=== PATIENT | female | born 1975 | race Caucasian/White ===

== ENCOUNTER 2021-11-24 13:23 | Emergency (ER) | payer OTHER, SELFPAY ==
--- NOTE | ~2021-11-24 | CT_ITS ---
EXAMINATION: CT abdomen pelvis w con DATE: 11/24/2021 16:05 INDICATION: Abdominal pain, nausea and vomiting. Constipation. TECHNIQUE: Computed tomography (CT) of the abdomen and pelvis was performed with 100 CC Omnipaque 300 intravenous contrast. Automated exposure control and iterative reconstruction technique were employe d. Exam dose: 203.50 mGy-cm total exam DLP. COMPARISON: None. FINDINGS: The lung bases are clear. Normal heart size. No pericardial or pleural effusion. The liver, gallbladder, bile ducts, spleen, pancreas and pancreatic duct appear normal. Normal morphology of the adrenal glands. No renal mass lesion or urinary tract calculus or hydroureteronephrosis. The urinary bladder is unrem arkable. The uterus and adnexal areas are unremarkable. Normal caliber of the abdominal aorta. No intraperitoneal or retroperitoneal or pelvic mass lesion or adenopathy or ascites. Normal appendix. There is prominent fecal material within the colon but no bowel obstruction is detec triston. No intraperitoneal free air. Mild fat-containing umbilical hernia. No suspicious osteolytic or osteosclerotic lesions. IMPRESSION: Normal appendix. No bowel obstruction or Reviewed, dictated and finalized at [facility]. Reviewed, dictated and finalized at [facility].
[2021-11-24 13:30] VITALS: BP 125/94; PULSE 91; RESP 16; TEMP 36.3; O2SAT 100
[2021-11-24 13:39] VITALS: BP 126/69; PULSE 66; TEMP 36.8; O2SAT 100
--- NOTE | 2021-11-24 13:56 | ED.GENADULT ---
HPI - General Adult General Chief complaint: Nausea/Vomiting/Diarrhea Stated complaint: vomiting Time Seen by Provider: 11/24/21 13:42 History of Present Illness HPI narrative: 45-year-old female with history of subsequent vomiting presented to the emergency department for evaluation of nausea vomiting for the past 3 days with associated constipation. Patient states she does take Reglan, MiraLAX and Protonix. Patient states that approximately every 3 months that she does have symptoms similar to this. Patient does follow-up with GI at [place]. Patient reports that she did have a colonoscopy approximately 1 month ago that was inconclusive because she was told she needed to be cleaned out. Patient does report intermittent issues with constipation. Related Data Allergies Allergy/AdvReac Type Severity Reaction Status Date / Time Penicillins Allergy Severe ANAPHYLAXIS Verified 11/24/21 14:23 Review of Systems Review of Systems: CONSTITUTIONAL: Denies fever, chills, or sweats. EYES: Denies visual changes, redness, or discharge. ENT: Denies rhinorrhea, congestion, sore throat, or otalgia. CARDIOVASCULAR: Denies chest pain, palpitations, or edema. RESPIRATORY: Denies cough or dyspnea. GASTROINTESTINAL: See HPI GENITOURINARY: Denies dysuria or hematuria. SKIN: Denies rash or itching. MUSCULOSKELETAL: Denies back pain, joint pain, or myalgia. NEUROLOGIC: Denies headache, numbness, or weakness. Exam Narrative: APPEARANCE: Well appearing, no pain, no distress, well-nourished. HEAD: normocephalic, atraumatic. EYES: PERRLA/EOMI, conjunctivae clear. NOSE: Normal no drainage EARS:TMS clear with good light reflex. THROAT: Pharynx clear, no exudate. NECK: Supple. No adenopathy, no masses. RESPIRATORY: Airway patent, respirations nonlabored. Clear to auscultation bilaterally, no rales, rhonchi, wheezing. CARDIOVASCULAR: Regular rate and rhythm without murmurs rubs or gallops. ABDOMINAL: Soft, nontender, nondistended, normal bowel sounds MUSCULOSKELETAL: Moves all extremities. Strength/ROM intact, No edema, No calf tenderness. NEURO: Alert. Cranial nerves II through XII intact. Grossly intact SKIN: Warm, dry. Normal Color Course Course Emergency Course: Patient did feel improved with treatment. Patient was tolerating p.o. Patient was encouraged to have close follow-up with her physicians as scheduled. Patient was provided outpatient prescription for her Reglan and Zofran. Vital Signs Vital signs: Vital Signs Temperature 97.3 F L 11/24/21 13:30 Pulse Rate 91 11/24/21 13:30 Respiratory Rate 16 11/24/21 13:30 Blood Pressure 125/94 H 11/24/21 13:30 Pulse Oximetry 100 11/24/21 13:30 Oxygen Delivery Room Air 11/24/21 13:30 Temperature 98.6 F 11/24/21 17:10 Pulse Rate 81 11/24/21 17:10 Respiratory Rate 16 11/24/21 17:10 Blood Pressure 118/70 11/24/21 17:10 Pulse Oximetry 100 11/24/21 17:10 Oxygen Delivery Room Air 11/24/21 14:19 Medical Decision Making Vital Signs Vital Signs: Vital Signs Temperature 97.3 F L 11/24/21 13:30 Pulse Rate 91 11/24/21 13:30 Respiratory Rate 16 11/24/21 13:30 Blood Pressure 125/94 H 11/24/21 13:30 Pulse Oximetry 100 11/24/21 13:30 Oxygen Delivery Room Air 11/24/21 13:30 Temperature 98.6 F 11/24/21 17:10 Pulse Rate 81 11/24/21 17:10 Respiratory Rate 16 11/24/21 17:10 Blood Pressure 118/70 11/24/21 17:10 Pulse Oximetry 100 11/24/21 17:10 Oxygen Delivery Room Air 11/24/21 14:19 Lab Data Lab results reviewed: Yes I reviewed the patient's lab results. Result diagrams: 11/24/21 14:02 11/24/21 14:02 Labs: Lab Results 11/24/21 11/24/21 11/24/21 Range/Units 14:02 14:02 14:02 WBC 12.9 H (4.5-10.0) K/mm3 RBC 4.86 (4.2-5.4) M/mm3 Hgb 14.5 (12.0-15.0) g/dL Hct 43.2 (37.0-47.0) % MCV 88.9 (80-100) fl MCH 29.8 (26-34) pg MCHC 33.6 (32-36) g/dl RDW 14.
[2021-11-24 14:09] LABS: Appearance Urine Slightly Cloudy (Clear); Basophils Percent Auto 0.2 % (0.2-1.2); Bilirubin Urine Negative (Negative); Blood Urine Negative (Negative); Color Urine Yellow (Yellow); Glucose Urine UA Negative (Negative); Hematocrit 43.2 % (37.0-47.0); Hemoglobin 14.5 g/dL (12.0-15.0); Immature Granulocyte Absolute 0.04 K/mm3 (0.00-0.031); Immature Granulocyte Percent A 0.3 % (0-0.5); Ketones Urine 2+ mg/dL (Negative); Leukocyte Esterase Ur Trace LEU/UL (Negative); Lymphocytes Absolute Auto 0.93 K/mm3 (0.9-3.2); Lymphocytes Percent Auto 7.2 % (18.3-44.2); Mean Corpuscular HGB Conc 33.6 g/dl (32-36); Mean Corpuscular Hemoglobin 29.8 pg (26-34); Mean Corpuscular Volume 88.9 fl (80-100); Mean Platelet Volume 11.1 fl (7.4-10.4); Monocytes Absolute Auto 0.2 K/mm3 (0.1-0.6); Monocytes Percent Auto 1.7 % (2.6-8.5); Neutrophils Absolute Auto 11.7 K/mm3 (1.3-6.7); Neutrophils Percent Auto 90.6 % (45.5-73.1); Nitrate Urine Negative (Negative); Platelet Count Result 242 k/mm3 (150-375); Protein Urine 1+ mg/dL (Negative); Red Blood Count 4.86 M/mm3 (4.2-5.4); Red Cell Distribution Width 14.1 % (11.5-14.5); Specific Grav Ur 1.015 (1.001-1.035); Urobilinogen Urine 0.2 mg/dL (<2.0); White Blood Count 12.9 K/mm3 (4.5-10.0); pH Urine >=9.0 (5.0-9.0)
[2021-11-24 14:14] LABS: Bacteria Urine Trace /hpf; Mucus Urine Rare /lpf; Squamous Epithelial Cell Urine Many /hpf (Few)
[2021-11-24 14:15] LABS: Add Urine Microscopic? YES
[2021-11-24 14:19] VITALS: BP 118/71; PULSE 79; RESP 19; O2SAT 96
[2021-11-24 14:20] LABS: Alanine Aminotransferase 16 U/L (6-35); Albumin Level 4.7 g/dL (3.5-5.1); Alkaline Phosphatase 90 U/L (38-126); Anion Gap 9 mmol/L (8-16); Aspartate Amino Transferase 26 U/L (14-36); Bilirubin,Total 0.7 mg/dL (0.2-1.3); Blood Urea Nitrogen 14 mg/dL (7-17); Calcium 9.5 mg/dL (8.4-10.2); Carbon Dioxide 27 mmol/L (22-30); Chloride 100 mmol/L (98-107); Estimated CRCL calculation 56 ml/min; Estimated Glomerular Filt Rate > 60; Glucose 154 mg/dL (65-110); Lipase 190 U/L (23-300); Potassium 3.9 mmol/L (3.4-5.0); Sodium 136 mmol/L (137-145)
[2021-11-24] MEDS: SODIUM CHLORIDE 0.9% IV 1,000 ML 999 ML IV CONT (15:22)
[2021-11-24] MEDS: METOCLOPRAMIDE HCL INJ 10 MG/2 ML VIAL IV PUSH (15:22)
[2021-11-24] MEDS: ONDANSETRON INJ 4 MG/2 ML VIAL IV PUSH (15:23)
--- NOTE | 2021-11-24 15:40 | PC.NURSE ---
Pt informed nurse she takes methadone daily, missed her dose today at 1330. Pt requesting pain medication and protonix aware, will place orders.
--- NOTE | 2021-11-24 16:00 | PC.NURSE ---
off floor to CT scan
[2021-11-24] MEDS: KETOROLAC 15 MG/ML VIAL (*BKC) IV PUSH (16:29)
[2021-11-24] MEDS: PANTOPRAZOLE SODIUM IV 40 MG VIAL IV PUSH (16:30)
--- NOTE | 2021-11-24 16:37 | PC.NURSE ---
Pt ordered 50 mcg of fentanyl. BP 90/54, patient snoring, intermittently sleeping while RN administering toradol and protonix. MD at bedside, discussed and ordered to not give Fentanyl at this time. Wasted with marlen Pearce RN.
[2021-11-24] MEDS: BELLADONNA ALK/PHENOB ELIX 10 ML, MAG HYDROX/ALUMINUM HYD/SIMETH 30 ML, LIDOCAINE HCL 2... PO (16:43)
[2021-11-24 17:10] VITALS: BP 118/70; PULSE 81; RESP 16; TEMP 37; O2SAT 100
== END 2021-11-24 17:10 | disposition home or self-care (01) ==
PROVIDERS: Emergency Provider Emergency Medicine
DX: R11.2 Nausea with vomiting, unspecified (principal)
CPT/HCPCS: 36415; 74177; 80053; 81001; 81025; 83605; 83690; 85025; 87086; 96361; 96374; 96375; 99284; A9270; C9113; J1885; J2405; J2765; J3010; J7030; Q9967

== ENCOUNTER 2022-05-02 11:09 | Emergency (ER) | payer OTHER, SELFPAY ==
--- NOTE | ~2022-05-02 | CT_ITS ---
EXAMINATION: CT abdomen pelvis w con INDICATION: Abdominal pain TECHNIQUE: Computed tomographic images of the abdomen and pelvis were obtained after the administrati on of 100 cc of Omnipaque 350 intravenous contrast. The dose-length product (DLP) was 206.66 mGy-cm. Automated exposure control and iterative reconstruction technique were employed. COMPARISON: 11/24/2021 FINDINGS: The lung bases are clear. The heart size is normal. The liver, spleen, pancreas, gallbladde r, and adrenal glands are normal. The kidneys are unremarkable. No pathologically enlarged abdominal or pelvic lymph nodes are identified. There is an umbilical hernia containing fat. There is no free i ntraperitoneal gas or evidence of bowel obstruction. IMPRESSION: 1. No CT correlate for the patient's symptoms. Reviewed, dictated and finalized at location [facility]. TICING DERMATOLOGIST
[2022-05-02 11:38] VITALS: BP 124/62; RESP 22; TEMP 36.5; O2SAT 96
--- NOTE | 2022-05-02 12:19 | ED.GENADULT ---
HPI - General Adult General Chief complaint: Nausea/Vomiting/Diarrhea Stated complaint: N/V/D Time Seen by Provider: 05/02/22 12:01 Source: RN notes reviewed History of Present Illness HPI narrative: Patient presents emergency department from home for abdominal pain. Patient states symptoms began yesterday. Abdominal pain is described as sharp and stabbing in nature and is diffuse throughout the abdomen. Has been associate with nausea vomiting and diarrhea. Patient states that she has been unable to keep anything down. States the pain does not radiate. She denies any fevers or chills chest pain or shortness of breath. States she has not take anything for the symptoms. Patient states that several people at home have had similar GI symptoms Related Data Allergies Allergy/AdvReac Type Severity Reaction Status Date / Time Penicillins Allergy Severe ANAPHYLAXIS Verified 11/24/21 14:23 Review of Systems Review of Systems: Gen.: Denies fevers or chills ENT: Denies congestion Respiratory: Denies shortness of breath or cough CV: Denies chest pain or palpitations GI: See HPI denies burning, urgency, frequency or hematuria Musculoskeletal: Denies back pain or muscle pain Neuro: Denies numbness, tingling, weakness or focal weakness Skin: Denies rash Except as documented, all other systems reviewed and negative [facility] Past Medical History Medical History (Updated 05/02/22 @ 18:36 by Danilo Bethea DO) Patient denies significant medical history Social History Social History (Updated 05/02/22 @ 12:20 by Danilo Bethea DO) Smoking status: Current every day smoker Exam Narrative: APPEARANCE: No acute distress, nontoxic, resting in bed HEENT: Normocephalic, atraumatic, OMM RESPIRATORY: No respiratory distress, clear to auscultation bilaterally with no rhonchi wheezing or rales CARDIOVASCULAR: RRR s murmur ABDOMINAL: Soft nondistended diffusely tender to palpation no rebound or guarding MUSCULOSKELETAl: Moves all extremities. No clubbing, cyanosis or edema. NEURO: Awake and alert. Following commands, speech normal, no focal deficits SKIN:: Warm, dry. Normal Color PSYCHIATRIC: Normal affect/mood Course Course Emergency Course: Patient able to eat and drink in ED with no emesis Reviewed old records the patient does have a history of recurrent GI issues per last note Patient states that they are feeling much better at this time. States abdominal pain has improved. Repeat abdominal exam shows the patient's abdomen to be soft with no surgical abdomen present. Discussed with patient results of workup and diagnosis. Discussed need for follow-up with primary care physician, reasons to return to the emergency department in proper use of medication. Patient understands and agrees to current treatment plan Vital Signs Vital signs: Vital Signs Temperature 97.7 F 05/02/22 11:38 Respiratory Rate 22 H 05/02/22 11:38 Blood Pressure 124/62 05/02/22 11:38 Pulse Oximetry 96 05/02/22 11:38 Oxygen Delivery Room Air 05/02/22 11:38 Temperature 97.7 F 05/02/22 11:38 Pulse Rate 90 05/02/22 16:08 Respiratory Rate 16 05/02/22 16:08 Blood Pressure 109/59 L 05/02/22 16:08 Pulse Oximetry 100 05/02/22 16:08 Oxygen Delivery Room Air 05/02/22 11:38 Medical Decision Making MDM Narrative Medical decision making narrative: Patient states that they are feeling much better at this time. States abdominal pain has resolved. Repeat abdominal exam shows the patient's abdomen to be soft and nontender. Discussed with patient results of workup and diagnosis. Discussed need for follow-up with primary care physician, reasons to return to the emergency department in proper use of medication. Patient understands and agrees to current treatment plan Vital Signs Vital Signs: Vital Signs Temperature 97.7 F 05/02/22 11:38 Respiratory Rate 22 H 05/02/22 11:38 Blood Pressure 124/62 05/02/22 11:38 Pulse O
[2022-05-02] MEDS: SODIUM CHLORIDE 0.9% IV 1,000 ML 999 ML IV CONT ×2 (12:24→16:29)
[2022-05-02] MEDS: FAMOTIDINE 20 MG/2 ML VIAL IV PUSH (12:25)
[2022-05-02] MEDS: ONDANSETRON INJ 4 MG/2 ML VIAL IV PUSH (12:25)
[2022-05-02 12:45] LABS: Basophils Percent Auto 0.2 % (0.2-1.2); Hematocrit 43.8 % (37.0-47.0); Hemoglobin 15.5 g/dL (12.0-15.0); Immature Granulocyte Absolute 0.07 K/mm3 (0.00-0.031); Immature Granulocyte Percent A 0.4 % (0-0.5); Lymphocytes Absolute Auto 0.49 K/mm3 (0.9-3.2); Mean Corpuscular HGB Conc 35.4 g/dl (32-36); Mean Corpuscular Hemoglobin 31.5 pg (26-34); Mean Platelet Volume 11.5 fl (7.4-10.4); Monocytes Absolute Auto 0.3 K/mm3 (0.1-0.6); Monocytes Percent Auto 1.7 % (2.6-8.5); Neutrophils Absolute Auto 15.4 K/mm3 (1.3-6.7); Neutrophils Percent Auto 94.7 % (45.5-73.1); Platelet Count Result 250 k/mm3 (150-375); Red Blood Count 4.92 M/mm3 (4.2-5.4); Red Cell Distribution Width 13.6 % (11.5-14.5); White Blood Count 16.2 K/mm3 (4.5-10.0)
[2022-05-02 12:49] LABS: Alanine Aminotransferase 17 U/L (6-35); Albumin Level 4.7 g/dL (3.5-5.1); Alkaline Phosphatase 79 U/L (38-126); Anion Gap 5 mmol/L (8-16); Aspartate Amino Transferase 28 U/L (14-36); Bilirubin,Total 0.9 mg/dL (0.2-1.3); Blood Urea Nitrogen 16 mg/dL (7-17); Calcium 9.2 mg/dL (8.4-10.2); Carbon Dioxide 30 mmol/L (22-30); Chloride 98 mmol/L (98-107); Estimated CRCL calculation 62 ml/min; Estimated Glomerular Filt Rate > 60; Glucose 142 mg/dL (65-110); Lipase 141 U/L (23-300); Potassium 3.8 mmol/L (3.4-5.0); Sodium 133 mmol/L (137-145)
[2022-05-02 13:15] LABS: Influenza A QL RT-PCR Negative (Negative); Influenza B QL RT-PCR Negative (Negative); SARS-CoV-2 RNA PCR Negative
[2022-05-02 13:57] VITALS: BP 99/68; PULSE 77; RESP 16; O2SAT 98
[2022-05-02 14:12] LABS: Add Urine Microscopic? YES; Appearance Urine Clear (Clear); Bilirubin Urine Negative (Negative); Blood Urine Negative (Negative); Color Urine Light Yellow (Yellow); Glucose Urine UA Negative (Negative); Ketones Urine Trace mg/dL (Negative); Leukocyte Esterase Ur Negative LEU/UL (Negative); Nitrate Urine Negative (Negative); Protein Urine Negative (Negative); Specific Grav Ur 1.015 (1.001-1.035); Urobilinogen Urine 0.2 mg/dL (<2.0); pH Urine 8.5 (5.0-9.0)
[2022-05-02 14:28] LABS: Bacteria Urine Trace /hpf; Mucus Urine Rare /lpf; RBC Urine 0-2 /hpf (0-2); Squamous Epithelial Cell Urine Moderate /hpf (Few); WBC Urine 0-3 /hpf
[2022-05-02 16:08] VITALS: BP 109/59; PULSE 90; RESP 16; O2SAT 100
[2022-05-02] MEDS: PROMETHAZINE HCL 25 MG/ML AMPUL 12.5 MG IV PUSH (16:29)
== END 2022-05-02 19:11 | disposition home or self-care (01) ==
PROVIDERS: Emergency Provider Emergency Medicine
DX: R10.9 Unspecified abdominal pain (principal); R11.2 Nausea with vomiting, unspecified; R19.7 Diarrhea, unspecified; Z20.822 Contact with and (suspected) exposure to COVID-19; F17.200 Nicotine dependence, unspecified, uncomplicated
CPT/HCPCS: 36415; 74177; 80053; 81001; 81025; 83690; 85025; 87636; 96361; 96365; 96366; 96375; 99284; J0131; J2405; J2550; J7030; Q9967

== ENCOUNTER 2022-06-11 18:19 | Emergency (ER) | payer OTHER, SELFPAY ==
--- NOTE | ~2022-06-11 | CT_ITS ---
EXAMINATION: CT abdomen pelvis w con DATE: 06/11/2022 20:07 INDICATION: lower abd pain, leukocytosis TECHNIQUE: Computed tomography (CT) of the abdomen and pelvis was performed with 100 mL Omnipaque-350 intravenous contrast. Automated exposure control and iterative reconstruction technique were employe d. The dose-length product was 202.76 mGy-cm. COMPARISON: 05/02/2022, 11/24/2021. FINDINGS: Lower thorax: Unremarkable Liver: Normal. Biliary/Gallbladder: Gallbladder is normal. Mild extrahepatic and proximal pancreatic duct dilation, stable in the prior studies. Pancreas: No mass or duct dilation. Spleen: Normal. Adrenals:No mass. Kidneys: No mass, stone, or hydronephrosis. GI tract: No small or large bowel dilation. Normal appendix. Mesentery/Peritoneum: No ascites, mass, or free air. Retroperitoneum: No mass. Pelvis: Pelvic organs are within normal limits. Soft Tissues: Soft tissues and body wall unremarkable. Small uncomplicated fat-containing umbilical a nd bilateral inguinal hernias. Bones: No acute osseous finding. IMPRESSION: No acute abdominopelvic process detected. Reviewed, dictated and finalized at [facility]. CIPLE SOFTWARE ENGINEER
--- NOTE | ~2022-06-11 | XR_ITS ---
EXAM: XR abdomen/kub 1V DATE: 06/11/2022 18:46 HISTORY: abd pain . COMPARISON: 05/02/2022 CT abdomen and pelvis. FINDINGS: Clear lung bases. Normal bowel gas pattern. No organomegaly. No abnormal abdominal calcifi cation. Regional bones and soft tissues normal for age. IMPRESSION: No radiographic evidence of obstruction or ileus. Reviewed, dictated and finalized at [facility]. CAL OFFICE SPECIALIST
[2022-06-11 18:22] VITALS: BP 106/56; PULSE 87; RESP 14; TEMP 36.8; O2SAT 98
--- NOTE | 2022-06-11 18:26 | ED.ABDPAIN ---
HPI - Abdominal Pain General Chief Complaint: Abdominal Pain Stated Complaint: Abd Pain, N/V Time Seen by Provider: 06/11/22 18:21 History of Present Illness HPI narrative: 46-year-old female presents to the emergency room via EMS for evaluation of lower abdominal pain. Patient states the pain has been present since 8:00 this morning was associated with bilious vomiting. Patient also admits to significant history of constipation. States that she regularly takes spoonful of MiraLAX, but she has not been taking it recently. Denies any abdominal surgeries. Denies fever. Reports frequent urination without dysuria. Related Data Allergies Allergy/AdvReac Type Severity Reaction Status Date / Time Penicillins Allergy Severe ANAPHYLAXIS Verified 06/11/22 18:21 Review of Systems Review of Systems: CONSTITUTIONAL: Denies fever, chills, or sweats. EYES: Denies visual changes, redness, or discharge. ENT: Denies rhinorrhea, congestion, sore throat, or otalgia. CARDIOVASCULAR: Denies chest pain, palpitations, or edema. RESPIRATORY: Denies cough or dyspnea. GASTROINTESTINAL: Reports abdominal pain, nausea, vomiting GENITOURINARY: Denies dysuria or hematuria. SKIN: Denies rash or itching. MUSCULOSKELETAL: Denies back pain, joint pain, or myalgia. NEUROLOGIC: Denies headache, numbness, dizziness, or weakness. PSYCHIATRIC: Denies anxiety or depression. PMFSH Past Medical History Medical History Patient denies significant medical history Social History Social History Smoking status: Current every day smoker Exam Narrative: GENERAL: Well-appearing, well-nourished, no physical limitations, and in no acute distress. HEAD: Normocephalic, atraumatic. EYES: Conjunctivae normal, PERRLA and EOMI. CHEST: Clear to auscultation. No respiratory distress. No wheezes rales or rhonchi. No tenderness. HEART: Regular rate and rhythm. No murmur heard. Normal peripheral pulses. ABDOMEN: Soft, lower abdominal tenderness, nondistended, normal active bowel sounds. BACK: No CVA tenderness EXTREMITIES: Normal range of motion. No edema. No clubbing or cyanosis SKIN: Warm, dry, no rash. No noted wounds NEURO: No focal deficits. Alert and oriented x3. MAEW. CN's II-XI intact bilaterally, normal gait PSYCH: Cooperative. Normal mood and affect. Course Vital Signs Vital signs: Vital Signs Temperature 36.8 C 06/11/22 18:22 Pulse Rate 87 06/11/22 18:22 Respiratory Rate 14 06/11/22 18:22 Blood Pressure 106/56 L 06/11/22 18:22 Pulse Oximetry 98 06/11/22 18:22 Temperature 36.8 C 06/11/22 18:22 Pulse Rate 87 06/11/22 18:22 Respiratory Rate 14 06/11/22 18:22 Blood Pressure 106/56 L 06/11/22 18:22 Pulse Oximetry 98 06/11/22 18:22 MDM - Abdominal Pain MDM Narrative Medical decision making narrative: At 46-year-old female presented with lower abdominal pain sudden onset this morning. Exam is without any peritoneal signs. No evidence of acute abdomen at this time. CT abdomen showed no evidence of hepatobiliary disease, gastric perforation or any other acute infectious process. Presentation is not consistent with any acute emergent cause. Patient did have a leukocytosis, likely due to the nausea and vomiting. Serial abdominal exams were normal. Patient responded well to Zofran. Will encourage patient to continue taking her daily MiraLAX and to follow-up with a GI specialist. Lab Data 06/11/22 18:44 06/11/22 18:44 Labs: Lab Results 06/11/22 06/11/22 06/11/22 Range/Units 18:44 18:44 19:17 WBC 15.8 H (4.5-10.0) K/mm3 RBC 5.02 (4.2-5.4) M/mm3 Hgb 15.1 H (12.0-15.0) g/dL Hct 45.2 (37.0-47.0) % MCV 90.0 (80-100) fl MCH 30.1 (26-34) pg MCHC 33.4 (32-36) g/dl RDW 13.9 (11.5-14.5) % Plt Count 270 (150-375) k/mm3 MPV 11.4 H (7.4-10.4
[2022-06-11] MEDS: SODIUM CHLORIDE 0.9% IV 1,000 ML 999 ML IV CONT ×2 (18:44→20:00)
[2022-06-11] MEDS: DICYCLOMINE HCL INJ 20 MG/2 ML VIAL IM (18:44)
[2022-06-11] MEDS: ONDANSETRON INJ 4 MG/2 ML VIAL IV PUSH ×2 (18:44→20:38)
[2022-06-11 18:50] LABS: Basophils Percent Auto 0.2 % (0.2-1.2); Hematocrit 45.2 % (37.0-47.0); Hemoglobin 15.1 g/dL (12.0-15.0); Immature Granulocyte Absolute 0.07 K/mm3 (0.00-0.031); Immature Granulocyte Percent A 0.4 % (0-0.5); Lymphocytes Absolute Auto 0.71 K/mm3 (0.9-3.2); Lymphocytes Percent Auto 4.5 % (18.3-44.2); Mean Corpuscular HGB Conc 33.4 g/dl (32-36); Mean Corpuscular Hemoglobin 30.1 pg (26-34); Mean Platelet Volume 11.4 fl (7.4-10.4); Monocytes Absolute Auto 0.1 K/mm3 (0.1-0.6); Monocytes Percent Auto 0.8 % (2.6-8.5); Neutrophils Absolute Auto 14.9 K/mm3 (1.3-6.7); Neutrophils Percent Auto 94.1 % (45.5-73.1); Platelet Count Result 270 k/mm3 (150-375); Red Blood Count 5.02 M/mm3 (4.2-5.4); Red Cell Distribution Width 13.9 % (11.5-14.5); White Blood Count 15.8 K/mm3 (4.5-10.0)
[2022-06-11 19:01] LABS: Alanine Aminotransferase 21 U/L (6-35); Albumin Level 4.7 g/dL (3.5-5.1); Alkaline Phosphatase 86 U/L (38-126); Anion Gap 10 mmol/L (8-16); Aspartate Amino Transferase 29 U/L (14-36); Bilirubin,Total 0.6 mg/dL (0.2-1.3); Blood Urea Nitrogen 15 mg/dL (7-17); Calcium 9.5 mg/dL (8.4-10.2); Carbon Dioxide 28 mmol/L (22-30); Chloride 95 mmol/L (98-107); Estimated Glomerular Filt Rate > 60; Glucose 140 mg/dL (65-110); Lipase 161 U/L (23-300); Potassium 3.8 mmol/L (3.4-5.0); Sodium 133 mmol/L (137-145)
--- NOTE | 2022-06-11 19:07 | PC.NURSE ---
mother Mari [phone]
[2022-06-11 19:29] LABS: Appearance Urine Slightly Cloudy (Clear); Bilirubin Urine 1+ (Negative); Blood Urine Trace-intact (Negative); Color Urine Yellow (Yellow); Glucose Urine UA Negative (Negative); Ketones Urine 4+ mg/dL (Negative); Leukocyte Esterase Ur Negative LEU/UL (Negative); Nitrate Urine Negative (Negative); Protein Urine 1+ mg/dL (Negative); Specific Grav Ur 1.025 (1.001-1.035); Urobilinogen Urine 0.2 mg/dL (<2.0); pH Urine 7.5 (5.0-9.0)
[2022-06-11 19:36] LABS: Add Urine Microscopic? YES; Bacteria Urine Trace /hpf; Mucus Urine Moderate /lpf; Squamous Epithelial Cell Urine Many /hpf (Few)
[2022-06-11] MEDS: METOCLOPRAMIDE HCL INJ 10 MG/2 ML VIAL IV PUSH (20:38)
[2022-06-11] MEDS: diphenhydrAMINE HCl INJ 50 MG/ML VIAL 25 MG IV PUSH (20:38)
== END 2022-06-11 20:46 | disposition home or self-care (01) ==
PROVIDERS: Emergency Provider Nurse Practitioner Family
DX: R10.30 Lower abdominal pain, unspecified (principal); R11.0 Nausea; K59.00 Constipation, unspecified; F17.200 Nicotine dependence, unspecified, uncomplicated
CPT/HCPCS: 36415; 74018; 74177; 80053; 81001; 81025; 83690; 85025; 96361; 96372; 96374; 96375; 96376; 99284; J0500; J1200; J2405; J2765; J7030; Q9967

== ENCOUNTER 2023-07-16 20:42 | Emergency (ER) | payer OTHER, SELFPAY ==
--- NOTE | ~2023-07-16 | XR_ITS ---
EXAMINATION: XR chest 2V Exam Date/Time: 07/16/2023 21:32 HEALTHCARE RECRUITER HISTORY: Chest pain, SOB Comparison: 02/19/2012. RESULT: Lines, tubes, and devices: None. Lungs and pleura: Clear. Cardiomediastinal silhouette: Stable. Other: No acute osseous or upper abdominal finding. IMPRESSION: No acute cardiopulmonary process. Reviewed, dictated and finalized at location [facility]. THCARE RECRUITER
--- NOTE | 2023-07-16 20:47 | ECG_ITS ---
Measurements Intervals [place] Rate: 83 P: 77 WI: 130 QRS: 60 QRSD: 90 T: 71 QT: 345 QTc: 408 Interpretive Statements SINUS RHYTHM NORMAL ECG NO PREVIOUS ECG AVAILABLE FOR COMPARISON Electronically Signed On 07-17-2023 6:27:56 ROLLED GLASS CROSSCUTTER by Darinel Benitez D.O.
[2023-07-16 20:49] VITALS: BP 121/81; PULSE 82; RESP 13; TEMP 36.5; O2SAT 99
[2023-07-16 21:14] LABS: Basophils Percent Auto 0.2 % (0.2-1.2); Eosinophils Percent Auto 0.2 % (0-4.4); Hematocrit 46.7 % (37.0-47.0); Hemoglobin 15.2 g/dL (12.0-15.0); Immature Granulocyte Absolute 0.03 K/mm3 (0.00-0.031); Immature Granulocyte Percent A 0.3 % (0-0.5); Lymphocytes Absolute Auto 1.31 K/mm3 (0.9-3.2); Lymphocytes Percent Auto 13.7 % (18.3-44.2); Mean Corpuscular HGB Conc 32.5 g/dl (32-36); Mean Corpuscular Hemoglobin 29.1 pg (26-34); Mean Corpuscular Volume 89.5 fl (80-100); Mean Platelet Volume 11.2 fl (7.4-10.4); Monocytes Absolute Auto 0.4 K/mm3 (0.1-0.6); Monocytes Percent Auto 4.3 % (2.6-8.5); Neutrophils Absolute Auto 7.8 K/mm3 (1.3-6.7); Neutrophils Percent Auto 81.3 % (45.5-73.1); Platelet Count Result 239 k/mm3 (150-375); Red Blood Count 5.22 M/mm3 (4.2-5.4); Red Cell Distribution Width 13.8 % (11.5-14.5); White Blood Count 9.6 K/mm3 (4.5-10.0)
[2023-07-16 21:25] LABS: INR 1.1; Prothrombin Time 14.4 Seconds (11.1-14.7)
[2023-07-16 21:26] LABS: Partial Thromboplastin Time 31.7 SECONDS (22.3-36.8)
[2023-07-16 21:32] LABS: Alanine Aminotransferase 18 U/L (6-35); Albumin Level 4.7 g/dL (3.5-5.1); Alkaline Phosphatase 70 U/L (38-126); Anion Gap 9 mmol/L (8-16); Aspartate Amino Transferase 30 U/L (14-36); Bilirubin,Total 0.8 mg/dL (0.2-1.3); Blood Urea Nitrogen 20 mg/dL (7-17); Calcium 9.9 mg/dL (8.4-10.2); Carbon Dioxide 30 mmol/L (22-30); Chloride 99 mmol/L (98-107); Estimated CRCL calculation 42 ml/min; Estimated Glomerular Filt Rate 60; Glucose 119 mg/dL (65-110); Lipase 142 U/L (23-300); Potassium 4.3 mmol/L (3.4-5.0); Sodium 138 mmol/L (137-145)
[2023-07-16 21:42] LABS: Troponin I < 0.012 ng/mL (0.000-0.034)
[2023-07-16 23:44] VITALS: BP 99/65; PULSE 66; RESP 12; O2SAT 96
[2023-07-16 23:46] VITALS: PULSE 66
--- NOTE | 2023-07-17 01:42 | ED.GENADULT ---
HPI - General Adult General Chief complaint: Unspecified Stated complaint: infection?, chest pain Time Seen by Provider: 07/17/23 01:16 History of Present Illness HPI narrative: Patient is a 47-year-old female who presents to the emergency department this evening complaining of chest pain and left arm pain. Patient admits that a few days ago she let her friend should her up with him. Patient states that she normally snorts heroin but this is the 1st time that she shot up the hairline. Patient has small bump in her left forearm where she is concerned about an abscess or an infection. Patient also states that she has been having some chest pain and is unsure if that is due to an infection or possibly her anxiety as she is very anxious about getting sick from this recent heroin injection. Patient is resting comfortably and denies any active chest pain. She also denies any shortness of breath, nausea or vomiting, fevers or chills home, any focal weakness, numbness and tingling. There are no other modifying, alleviating, or precipitating factors at this time. Related Data Allergies Allergy/AdvReac Type Severity Reaction Status Date / Time Penicillins Allergy Severe ANAPHYLAXIS Verified 06/11/22 18:21 Review of Systems Review of Systems: All systems are reviewed and are negative unless stated otherwise in the HPI. [facility] Past Medical History Medical History Patient denies significant medical history Social History Social History Smoking status: Current every day smoker Exam Narrative: General: Alert, awake, afebrile, in no acute distress. HEENT: PERRL, no rhinorrhea, no post nasal drip, oropharynx clear. Neck: Trachea midline, no JVD, no lymphadenopathy. Cardiovascular: Regular rate and rhythm, no murmurs, rubs or gallops, no peripheral edema. Respiratory: Clear to auscultation bilaterally, no tachypnea, no wheezing, no rhonchi, no rubs, no respiratory distress. Abdomen: Soft, nontender, nondistended, no rebound, no guarding, no peritoneal signs. Musculoskeletal: No joint swelling or deformity, normal muscle tone. Skin: No rashes or petechia, no signs of infection, small lateral left forearm soft tissue swelling, no overlying erythema or evidence of infection, no fluctuance or abscess. Psychiatric: Alert and oriented, normal behavior and judgment for situation. Neurological: Alert and oriented to person, place, and time. Follows all commands. No focal deficits, speech is clear and fluent. Course Vital Signs Vital signs: Vital Signs Temperature 97.7 F 07/16/23 20:49 Pulse Rate 82 07/16/23 20:49 Respiratory Rate 13 07/16/23 20:49 Blood Pressure 121/81 07/16/23 20:49 Pulse Oximetry 99 07/16/23 20:49 Oxygen Delivery Room Air 07/16/23 20:49 Temperature 97.7 F 07/16/23 20:49 Pulse Rate 66 07/16/23 23:46 Respiratory Rate 12 07/16/23 23:44 Blood Pressure 99/65 L 07/16/23 23:44 Pulse Oximetry 96 07/16/23 23:44 Oxygen Delivery Room Air 07/16/23 20:49 Medical Decision Making MDM Narrative Medical decision making narrative: The patient was evaluated by myself in the emergency department. History is obtained from patient who is an independent historian and physical exam was performed. External medical records were reviewed at this time. IV was established and pertinent tests were ordered. EKG was obtained which revealed sinus rhythm at a rate of 83 beats per minute. No ST changes, T wave inversions or evidence of acute ischemia. EKG was independently interpreted by me and is currently pending official cardiology read. Laboratory results obtained revealing no acute process. CRP and ESR are currently pending. Imaging studies obtained included CXR which was independently interpreted by me revealing no acute process, which is pending final radiology interpretation.
[2023-07-17 02:02] LABS: CRP < 0.5 mg/dL (<1.0)
[2023-07-17 02:21] LABS: Erythrocyte Sedimentation Rate 2 mm/hr (0-20)
== END 2023-07-17 02:10 | disposition home or self-care (01) ==
PROVIDERS: Emergency Provider Emergency Medicine
DX: R07.9 Chest pain, unspecified (principal); F41.9 Anxiety disorder, unspecified; R22.32 Localized swelling, mass and lump, left upper limb; F11.10 Opioid abuse, uncomplicated; F17.210 Nicotine dependence, cigarettes, uncomplicated
CPT/HCPCS: 36415; 71046; 80053; 83690; 84484; 85025; 85610; 85652; 85730; 86140; 93005; 99284